=== PATIENT | male | born 1965 | race Caucasian/White ===

== ENCOUNTER 2019-02-24 21:15 | Emergency (ER) | payer OTHER ==
[~2019-02-24] VITALS: Ht 190.5 cm; Wt 108.9 kg
[2019-02-24 22:04] LABS: ABSOLUTE BASOPHILS 0.1 thou/uL (0.0-0.2); ABSOLUTE EOSINOPHILS 0.3 thou/uL (0.0-0.7); ABSOLUTE LYMPHOCYTES 1.9 thou/uL (0.8-5.3); ABSOLUTE MONOCYTES 0.6 thou/uL (0.0-1.2); ABSOLUTE NEUTROPHILS 4.5 thou/uL (1.6-8.1); BASOPHILS 1.2 %; EOSINOPHILS 3.6 %; HEMATOCRIT 43.2 % (42.0-52.0); HEMOGLOBIN 15.5 gm/dL (14.0-18.0); LYMPHOCYTES 25.8 %; MCH 31.8 pg (26.0-34.0); MCV 88.4 fL (80.0-100.0); MONOCYTES 8.3 %; MPV 6.8 fl. (7.2-11.1); NUCLEATED RBCS 0 /100WBC; PLATELET COUNT* 237 thou/uL (150-400); POLYS 61.1 %; RBC 4.88 mil/uL (4.50-6.00); RDW-CV 13.1 % (10.5-14.5); WBC 7.4 thou/uL (4.0-11.0)
[2019-02-24 22:16] LABS: APTT 21.9 Seconds (25.0-31.3); INR 0.9; PROTIME 9.6 Seconds (9.20-11.50)
[2019-02-24 22:17] LABS: CALCIUM 9.4 mg/dL (8.5-10.1); POTASSIUM 4.7 mmol/L (3.5-5.1)
[2019-02-24 22:27] LABS: ALBUMIN 3.3 g/dL (3.4-5.0); TOTAL BILIRUBIN 0.7 mg/dL (<0.1-1.0); TOTAL PROTEIN 6.8 g/dL (6.4-8.2)
[2019-02-24 22:46] LABS: URINE BILIRUBIN NEGATIVE (Negative); URINE BLOOD NEGATIVE (Negative); URINE CLARITY CLEAR; URINE COLOR YELLOW; URINE GLUCOSE-RANDOM 1+ (Negative); URINE KETONES NEGATIVE (Negative); URINE LEUKOCYTES-REFLEX NEGATIVE (Negative); URINE NITRITE-REFLEX NEGATIVE (Negative); URINE PROTEIN NEGATIVE (Negative)
[2019-02-25] MEDS ORDERED: JANUMET 50-1,01 EACH PO (01:08)
[2019-02-25 01:22] VITALS: BP 132/78
--- NOTE | 2019-02-25 11:07 | EKG ---
[place] [address] ELECTROCARDIOGRAM REPORT Name: GEORGINA CHASE Room: [facility]#: [id number] Admission: 02/24/19 Attend Phys: Discharge: 02/25/19 Date of : 63 Report #: [id number] THIS REPORT FOR: //name// [facility] ED Test Date: 2019-02-24 Test Time: 21:29:38 Pat Name: GEORGINA CHASE Department: Room: Gender: M [employer] Supervisor: MATTHEWS : 1965 Requested By: Lizzie Costello Order Number: [id number] MD: Del Mosher Measurements Intervals [place] Rate: 87 P: 20 WY: 129 QRS: 94 QRSD: 99 T: 62 QT: 331 QTc: 398 Interpretive Statements Sinus rhythm ST elevation, consider early repolarization Borderline right axis deviation No previous ECG available for comparison Electronically Signed On 02-25-2019 11:07:12 [employer] by Del Mosher [email or web address] <ELECTRONICALLY SIGNED> By: Del Mosher MD, [facility] 02/25/19 1107 [id number] Del Mosher MD, FACC /EPI
== END 2019-02-25 01:22 | disposition home or self-care (01) ==
LOC: M.ERS 21:15
PROVIDERS: Personal Emergency Response Attendant
DX: E11.65 Type 2 diabetes mellitus with hyperglycemia (principal); Z90.49 Acquired absence of other specified parts of digestive tract; Z95.1 Presence of aortocoronary bypass graft; Z88.0 Allergy status to penicillin